=== PATIENT | male | born 1955 | race Caucasian/White ===

== ENCOUNTER 2018-10-20 12:18 | Day surgery (SDC) | payer OTHER | END 2018-10-20 19:23 | disposition home or self-care (01) | LOC: GIL 12:18 | DX: K92.1 Melena (principal); D12.0 Benign neoplasm of cecum; D12.4 Benign neoplasm of descending colon; D12.3 Benign neoplasm of transverse colon; D12.8 Benign neoplasm of rectum | CPT/HCPCS: 45380; 88305 ==